=== PATIENT | male | born 1960 | race Caucasian/White ===

== ENCOUNTER 2017-11-25 13:08 | Emergency (ER) | payer MEDICARE ==
--- NOTE | 2017-11-25 13:19 | CT ---
Clinical history: 57-year-old male seizure and comatose. CVA trauma. Scan technique: Volume acquisition of data emergency unenhanced CT scan of the head and brain obtaine d with the patient was lying supine on the Siemens multi slice scanner [place], [place]. All data archived in the PACS system for storage and study (bone brain windows). Interpretation: Uniformly thick bony calvarium without sign of skull fracture or underlying brain contusion or epidur al/subdural hematoma. Symmetric arroyo-white matter pattern and underlying mirror-image normal ventricular system. Physiologi c midline pineal and retrocardiac plexus calcifications. (Suggestion tiny noncalcified meningioma ant eriorly left midline axial slice #16) No sign of acute intracerebral/intraventricular/subarachnoid bleed. No ischemic infarcts or signs of encephalomalacia. Cerebellum and brainstem unremarkable. Symmetric clear pneumatization of the mastoid and paranasal sinuses. CONCLUSION: No sign of acute intracranial bleed
--- NOTE | 2017-11-25 13:24 | EDM.PDOC ---
ED HPI GENERAL MEDICAL PROBLEM - General Stated Complaint: STROKE Time Seen by Provider: 11/25/17 13:12 Source of Information: Reports: EMS History Limitations: Reports: Other - History of Present Illness INITIAL COMMENTS - FREE TEXT/NARRATIVE: This 57 yo male patient was brought to the ED by [facility] due to profound right sided weakness. EMS reports that the patient was at his home lying on the floor with right sided weakness. The last known normal time (reported by his brother) was 2 days ago. The patient reports that he was feeling normal at about 0700 this morning, but fell to the floor by 0800. The patient's brother found him at the time of the call to EMS. The brother reports that he was going to the patient's house to watch a game. EMS was called to the scene at 1242. The patient went directly to CT upon arrival in the ED. Onset: Today Duration: Constant Location: Reports: Other (right sided weakness) Quality: Reports: Other Severity: Severe Improves with: Reports: None Worsens with: Reports: None - Related Data Allergies Allergy/AdvReac Type Severity Reaction Status Date / Time No Known Allergies Allergy Verified 11/25/17 13:45 Home Meds: Home Meds Naproxen Sodium [Aleve] 220 mg PO ASDIRECTED 11/25/17 [History] Past Medical History HEENT History: Reports: None Cardiovascular History: Reports: None Respiratory History: Reports: None Gastrointestinal History: Reports: None Genitourinary History: Reports: None Musculoskeletal History: Reports: None Neurological History: Reports: None Psychiatric History: Reports: None Endocrine/Metabolic History: Reports: None Hematologic History: Reports: None Immunologic History: Reports: None Oncologic (Cancer) History: Reports: None Dermatologic History: Reports: None - Infectious Disease History Infectious Disease History: Reports: None - Past Surgical History Head Surgeries/Procedures: Reports: None Social & Family History - Family History Family Medical History: Noncontributory - Caffeine Use Caffeine Use: Reports: Coffee ED ROS GENERAL - Review of Systems Review Of Systems: ROS reveals no pertinent complaints other than HPI. ED EXAM, NEURO - Physical Exam Exam: Not Obtained Exam Limited By: No Limitations General Appearance: Alert, Severe Distress, Obese Eye Exam: Bilateral Eye: EOMI, PERRL Ears: Normal External Exam, Normal Canal, Hearing Grossly Normal, Normal TMs Nose: Normal Inspection, Normal Mucosa, No Blood Throat/Mouth: Normal Teeth, Normal Gums, Other (right sided facial droop) Head Exam: Atraumatic, Normocephalic Neck: Normal Inspection, Supple Respiratory/Chest: No Respiratory Distress, Lungs Clear, Normal Breath Sounds, No Accessory Muscle Use, Chest Non-Tender Cardiovascular: Normal Peripheral Pulses, Regular Rate, Rhythm, No Edema, No Gallop, No JVD, No Murmur, No Rub GI/Abdominal: Normal Bowel Sounds, Soft, Non-Tender, No Organomegaly, No Distention, No Abnormal Bruit, No Mass (Male) Exam: Deferred Rectal (Males) Exam: Deferred Neurological: Alert, Other (right sided facial droop, right upper and lower extremity weakness) Back Exam: Normal Inspection, Full Range of Motion, NT Extremities: Other (right sided weakness) Skin Exam: Warm, Dry, Intact, Normal Color, No Rash Course - Orders/Labs/Meds Orders: Active Orders 24 hr Category Date Time Status EKG Documentation Completion [RC] URGENT Care 11/25/17 13:09 Ordered Head wo Cont [CT] Urgent Exams 11/25/17 13:09 Ordered CBC WITH AUTO DIFF [HEME] Urgent Lab 11/25/17 13:09 Ordered COMPREHENSIVE METABOLIC PN,CMP [CHEM] Urgent Lab 11/25/17 13:09 Ordered DRUG SCREEN URINE BIORAD [URCHEM] Stat Lab 11/25/17 13:09 Ordered ETHANOL BLOOD MEDICAL [CHEM] Stat Lab 11/25/17 13:09 Ordered INR,PT,PROTHROMBIN TIME [COAG] Stat Lab 11/25/17 13:09 Ordered TROPONIN I [CHEM] Urgent Lab 11/25/17 13:09 Ordered UA W/MICROSCOPIC [URIN] Stat Lab 11/25/17 13:09 Ordered Departure - Departure Time of Disposition: 13:52 Disposition: DC/Tfer to Acute Hospital 02 Condition: Critical Clinical Impression: CVA (cerebral vascular accident) Qualifiers: CVA mechanism: unspecified Qualified Code(s): I63.9 - Cerebral infarction, unspecified - Discharge Information Forms: Interfacility Transfer EMTALA Care Plan Goals: Discussed the examination, history, lab and CT results with Dr. Hall (Neurology with [facility] in [place]). Dr. Hall accepted the patient for continued evaluation and care. The patient was transferred by [facility]. - My Orders Last 24 Hours: My Active Orders 11/25/17 13:09 EKG Documentation Completion [RC] URGENT Head wo Cont [CT] Urgent CBC WITH AUTO DIFF [HEME] Urgent COMPREHENSIVE METABOLIC PN,CMP [CHEM] Urgent DRUG SCREEN URINE BIORAD [URCHEM] Stat ETHANOL BLOOD MEDICAL [CHEM] Stat INR,PT,PROTHROMBIN TIME [COAG] Stat TROPONIN I [CHEM] Urgent UA W/MICROSCOPIC [URIN] Stat - Assessment/Plan Last 24 Hours: My Active Orders 11/25/17 13:09 EKG Documentation Completion [RC] URGENT Head wo Cont [CT] Urgent CBC WITH AUTO DIFF [HEME] Urgent COMPREHENSIVE METABOLIC PN,CMP [CHEM] Urgent DRUG SCREEN URINE BIORAD [URCHEM] Stat ETHANOL BLOOD MEDICAL [CHEM] Stat INR,PT,PROTHROMBIN TIME [COAG] Stat TROPONIN I [CHEM] Urgent UA W/MICROSCOPIC [URIN] Stat
[2017-11-25 13:26] VITALS: BP 179/116
[2017-11-25 13:52] LABS: CHLORIDE,CL 105 mmol/L (101-111)
[2017-11-25 13:53] LABS: SODIUM,NA 140 mmol/L (135-145)
== END 2017-11-25 14:00 ==
LOC: DL.ED 13:08
DX: I63.9 Cerebral infarction, unspecified (principal)
CPT/HCPCS: 36415; 70450; 80053; 80305; 81001; 84484; 85025; 85610; 93005; 93010; 99285; G0480

== ENCOUNTER 2024-01-13 15:01 | Inpatient (IN) | payer MEDICARE, MEDICAID ==
[2024-01-13] MEDS: Lidocaine 5% Oint 35.44 GM Tube TOP ONE (15:50)
[2024-01-13] MEDS: Ketorolac 30 MG/ML SDV IM ONE (16:37)
[2024-01-13] MEDS ORDERED: Ondansetron 4 MG/2 ML SDV IVPUSH PRN ×2 (17:09→20:41)
[2024-01-13] MEDS ORDERED: Acetaminophen 325 MG Tab PO PRN (17:09)
[2024-01-13] MEDS ORDERED: Albuterol/Ipratropium 3.0-0.5 MG/3 ML Neb Soln NEB PRN ×2 (17:14→20:41)
[2024-01-13] MEDS ORDERED: Acetaminophen/HYDROcodone 325-10 MG Tab PO PRN (17:14)
[2024-01-13] MEDS: HYDROmorphone 2 MG/ML Syringe IVPUSH PRN (17:58)
[2024-01-13] MEDS ORDERED: Aluminum Hydroxide/Magnesium Hydroxide/Simethicone Susp 30 ML Cup PO PRN (20:36)
[2024-01-13] MEDS ORDERED: Metoprolol Tartrate 5 MG/5 ML SDV IVPUSH PRN (20:39)
[2024-01-13] MEDS ORDERED: hydrALAZINE 20 MG/ML SDV IVPUSH PRN (20:39)
[2024-01-13] MEDS ORDERED: Promethazine 25 MG/ML SDV IM PRN (20:41)
[2024-01-13] MEDS ORDERED: Polyethylene Glycol 3350 Powder 17 GM Packet PO PRN (20:41)
[2024-01-13] MEDS: Benzocaine/Cetylpyridinium/Menthol Lozenge MUCMEM SCH (21:19)
[2024-01-13] MEDS: Sennosides/Docusate Sodium 50-8.6 MG Tab PO PRN (21:19)
[2024-01-13] MEDS: traMADol 50 MG Tab PO SCH (21:20)
[2024-01-13] MEDS: Tamsulosin 0.4 MG Cap.ER PO SCH (21:20)
[2024-01-13] MEDS: atorvaSTATin 10 MG Tab PO SCH (21:20)
[2024-01-13] MEDS: Calcium Carbonate/Vitamin D3 1250 MG-5 MCG Tab PO SCH (21:20)
[2024-01-13] MEDS: QUEtiapine 25 MG Tab PO SCH (21:21)
[2024-01-13] MEDS: Warfarin 2.5 MG Tab PO ONE (21:21)
[2024-01-13] MEDS: Gabapentin 300 MG Cap PO SCH (21:21)
[2024-01-13] MEDS: Carvedilol 6.25 MG Tab PO SCH (21:22)
[2024-01-13] MEDS ORDERED: Benzocaine/Cetylpyridinium/Menthol Lozenge MUCMEM PRN (21:33)
[2024-01-14 06:45] LABS: BASOPHILS PERCENT AUTO 0.7 % (0.0-1.0); EOSINOPHILS PERCENT AUTO 6.5 % (1.0-3.0); HEMATOCRIT 45.1 % (40.0-54.0); HEMOGLOBIN 13.9 g/dL (14.0-18.0); LYMPHOCYTES PERCENT AUTO 27.5 % (20.5-50.1); MEAN CORPUSCULAR HEMOGLOBIN 30.1 pg (27.0-34.0); MEAN CORPUSCULAR HGB CONC 30.8 g/dL (33.0-35.0); MEAN CORPUSCULAR VOLUME 97.6 fL (80-100); NEUTROPHILS PERCENT AUTO 53.3 % (42.2-75.2); PLATELET COUNT,PLT 221 10^3/uL (150-450); RED BLOOD CELL COUNT 4.62 10^6/uL (4.6-6.2); WHITE BLOOD CELL COUNT,WBC 9.2 10^3/uL (5.0-10.0)
[2024-01-14 07:23] LABS: A/G RATIO 0.9; ALBUMIN 3.4 g/dL (3.4-5.0); ANION GAP 9.5 mEq/L (7-13); BILIRUBIN TOTAL 0.5 mg/dL (0.2-1.0); BUN/CREATININE RATIO 15.8 (No establ ref range); CREATININE 1.14 mg/dL (0.70-1.30); EST CRCL DRUG DOSING (CG) 70.91 mL/min; MAGNESIUM 2.2 mg/dL (1.8-2.4); POTASSIUM,K 4.5 mmol/L (3.5-5.1); PROTEIN TOTAL,TP 7.3 g/dL (6.4-8.2); T4 FREE 0.95 ng/dL (0.76-1.46); TSH ULTRASENSITIVE 2.01 uIU/mL (0.36-3.74)
[2024-01-14] MEDS ORDERED: Warfarin 2.5 MG Tab PO SCH (09:00)
[2024-01-14] MEDS: amLODIPine 5 MG Tab PO SCH (09:18)
[2024-01-14] MEDS: Omeprazole 20 MG Cap.CR PO SCH (09:19)
[2024-01-14 12:25] LABS: INR 1.1 (0.9-1.2)
[2024-01-14] MEDS ORDERED: Warfarin 2.5 MG Tab PO ONE (14:00)
[2024-01-14] MEDS: Warfarin 2.5 MG Tab PO SCH (17:59)
[2024-01-14] MEDS: Warfarin 5 MG Tab PO ONE (18:00)
[2024-01-15 06:37] LABS: INR 1.1 (0.9-1.2); PROTHROMBIN TIME 11.4 SEC (9.0-12.0)
[2024-01-15 06:41] LABS: A/G RATIO 0.9; ALBUMIN 3.5 g/dL (3.4-5.0); ANION GAP 9.3 mEq/L (7-13); BILIRUBIN TOTAL 0.4 mg/dL (0.2-1.0); BUN/CREATININE RATIO 13.8 (No establ ref range); CALCIUM 9.6 mg/dL (8.5-10.1); CREATININE 1.16 mg/dL (0.70-1.30); EST CRCL DRUG DOSING (CG) 69.68 mL/min; MAGNESIUM 1.9 mg/dL (1.8-2.4); POTASSIUM,K 4.3 mmol/L (3.5-5.1); PROTEIN TOTAL,TP 7.6 g/dL (6.4-8.2)
[2024-01-15] MEDS: Warfarin 5 MG Tab PO ONE (17:26)
[2024-01-16 07:09] LABS: INR 1.6 (0.9-1.2); PROTHROMBIN TIME 15.9 SEC (9.0-12.0)
[2024-01-16 07:15] LABS: ALBUMIN 3.3 g/dL (3.4-5.0); ANION GAP 9.3 mEq/L (7-13); BILIRUBIN TOTAL 0.4 mg/dL (0.2-1.0); BUN/CREATININE RATIO 11.3 (No establ ref range); CALCIUM 9.6 mg/dL (8.5-10.1); CREATININE 1.06 mg/dL (0.70-1.30); EST CRCL DRUG DOSING (CG) 76.26 mL/min; MAGNESIUM 1.9 mg/dL (1.8-2.4); POTASSIUM,K 4.3 mmol/L (3.5-5.1); PROTEIN TOTAL,TP 7.1 g/dL (6.4-8.2)
[2024-01-16 07:25] LABS: A/G RATIO 0.87
[2024-01-16] MEDS: Warfarin 5 MG Tab PO ONE (16:47)
[2024-01-16] MEDS: Magnesium Hydroxide 400 MG/5 ML Susp 30 ML Cup PO PRN (20:40)
[2024-01-16] MEDS: Acetaminophen/HYDROcodone 325-5 MG Tab PO PRN (20:42)
[2024-01-17 06:48] LABS: INR 2.7 (0.9-1.2); PROTHROMBIN TIME 25.9 SEC (9.0-12.0)
[2024-01-17 06:51] LABS: ALBUMIN 3.2 g/dL (3.4-5.0); BILIRUBIN TOTAL 0.3 mg/dL (0.2-1.0); BUN/CREATININE RATIO 13.6 (No establ ref range); CALCIUM 9.3 mg/dL (8.5-10.1); CREATININE 1.1 mg/dL (0.70-1.30); EST CRCL DRUG DOSING (CG) 73.48 mL/min; PROTEIN TOTAL,TP 6.8 g/dL (6.4-8.2)
[2024-01-17 06:56] LABS: A/G RATIO 0.89
[2024-01-17] MEDS ORDERED: Warfarin 2.5 MG Tab PO SCH ×2 (08:15→14:00)
[2024-01-17] MEDS: Cyclobenzaprine 10 MG Tab PO PRN (09:06)
[2024-01-18 07:12] LABS: INR 2.7 (0.9-1.2); PROTHROMBIN TIME 26.5 SEC (9.0-12.0)
[2024-01-18 07:13] LABS: A/G RATIO 0.9; ALBUMIN 3.6 g/dL (3.4-5.0); ANION GAP 2.8 mEq/L (7-13); BILIRUBIN TOTAL 0.3 mg/dL (0.2-1.0); BUN/CREATININE RATIO 12.7 (No establ ref range); CALCIUM 9.6 mg/dL (8.5-10.1); CREATININE 1.26 mg/dL (0.70-1.30); EST CRCL DRUG DOSING (CG) 64.15 mL/min; MAGNESIUM 2.3 mg/dL (1.8-2.4); POTASSIUM,K 3.8 mmol/L (3.5-5.1); PROTEIN TOTAL,TP 7.7 g/dL (6.4-8.2)
[2024-01-19 06:45] LABS: INR 2.1 (0.9-1.2); PROTHROMBIN TIME 20.7 SEC (9.0-12.0)
[2024-01-19 10:29] VITALS: BP 115/85; PULSE 90
[2024-01-19] MEDS ORDERED: Warfarin 2.5 MG Tab PO SCH (20:00)
== END 2024-01-19 10:10 | disposition home or self-care (01) | DRG 556 ==
LOC: DL.ED 15:01 → DL.MS 16:29 → UNDOADMOB 16:29 → INTOOBSV 01-15 11:22 → DL.MS 01-15 11:22 → OBSVTOIN 01-15 11:22
PROVIDERS: ADMIT Internal Medicine; ATTEND Internal Medicine
DX: M25.562 Pain in left knee (principal); M17.12 Unilateral primary osteoarthritis, left knee; I10 Essential (primary) hypertension; K21.9 Gastro-esophageal reflux disease without esophagitis; M25.462 Effusion, left knee; W19.XXXA Unspecified fall, initial encounter; K59.00 Constipation, unspecified; Z68.35 Body mass index [BMI] 35.0-35.9, adult; E66.9 Obesity, unspecified; G62.9 Polyneuropathy, unspecified; G89.4 Chronic pain syndrome; I48.91 Unspecified atrial fibrillation; R09.02 Hypoxemia; M51.37 Other intervertebral disc degeneration, lumbosacral region; F32.A Depression, unspecified; E78.00 Pure hypercholesterolemia, unspecified; G47.00 Insomnia, unspecified; R79.1 Abnormal coagulation profile; M48.07 Spinal stenosis, lumbosacral region; Z86.73 Personal history of transient ischemic attack (TIA), and cerebral infarction without residual deficits; Z74.09 Other reduced mobility; Z79.01 Long term (current) use of anticoagulants; Z87.442 Personal history of urinary calculi; Z79.899 Other long term (current) drug therapy
CPT/HCPCS: 36415; 80053; 82306; 83735; 84439; 84443; 85025; 85610; 96372; 96374; 97110-GP; 97165-GO; 97530-GO; 99223; 99232; 99238; 99284; A9270-GY; G0378; J1170; J1885

== ENCOUNTER 2024-06-27 10:34 | Emergency (ER) | payer MEDICARE, MEDICAID ==
[2024-06-27] MEDS: Albuterol/Ipratropium 3.0-0.5 MG/3 ML Neb Soln ONE (10:38)
[2024-06-27] MEDS ORDERED: Iopamidol 755 Mg/ML 100 ML Bottle IVPUSH ONE (10:43)
[2024-06-27 10:51] LABS: BASOPHILS PERCENT AUTO 0.5 % (0.0-1.0); EOSINOPHILS PERCENT AUTO 2.1 % (1.0-3.0); HEMATOCRIT 42.6 % (40.0-54.0); HEMOGLOBIN 12.7 g/dL (14.0-18.0); LYMPHOCYTES PERCENT AUTO 21.6 % (20.5-50.1); MEAN CORPUSCULAR HEMOGLOBIN 30.2 pg (27.0-34.0); MEAN CORPUSCULAR HGB CONC 29.8 g/dL (33.0-35.0); MEAN CORPUSCULAR VOLUME 101.2 fL (80-100); MONOCYTES PERCENT AUTO 13.3 % (2-8); NEUTROPHILS PERCENT AUTO 62.5 % (42.2-75.2); PLATELET COUNT,PLT 228 10^3/uL (150-450); RED BLOOD CELL COUNT 4.21 10^6/uL (4.6-6.2); WHITE BLOOD CELL COUNT,WBC 11.1 10^3/uL (5.0-10.0)
[2024-06-27 10:56] LABS: O2 DELIVERY DEVICE NON REBR MASK
[2024-06-27 10:59] LABS: PH,VENOUS 7.27 (7.31-7.41)
[2024-06-27 11:02] LABS: PCO2 VENOUS 82 mmHg (41-51); PO2 VENOUS 66 mmHg (35-42)
[2024-06-27 11:03] LABS: BASE EXCESS VENOUS 6.6 mmol/l ((-2)-(+3)); BICARBONATE,VENOUS 36 mmol/l (19-25); O2 SATURATION VENOUS 86.3 % (60-80)
[2024-06-27 11:11] LABS: INR 2.6 (0.9-1.2); PROTHROMBIN TIME 25.5 SEC (9.0-12.0)
[2024-06-27 11:14] LABS: A/G RATIO 0.9; ALANINE AMINOTRANSFERASE,ALT 25 U/L (16-63); ALBUMIN 3.6 g/dL (3.4-5.0); ALKALINE PHOSPHATASE 96 U/L (46-116); ANION GAP 10.7 mEq/L (7-13); ASPARTATE AMNIOTRANSFERASE,AST 14 U/L (15-37); BILIRUBIN TOTAL 0.4 mg/dL (0.2-1.0); BLOOD UREA NITROGEN,BUN 23 mg/dL (7-18); CALCIUM 9.1 mg/dL (8.5-10.1); CARBON DIOXIDE,CO2 36 mmol/L (21-32); CHLORIDE,CL 105 mmol/L (98-107); CREATININE 1.15 mg/dL (0.70-1.30); EST CRCL DRUG DOSING (CG) 70.29 mL/min; ESTIMATED GFR 71 mL/min (>=60); ETHANOL BLOOD MEDICAL < 3 mg/dL (0); GLUCOSE RANDOM 97 mg/dL (70-99); POTASSIUM,K 4.7 mmol/L (3.5-5.1); PROTEIN TOTAL,TP 7.4 g/dL (6.4-8.2); SODIUM,NA 147 mmol/L (136-145)
[2024-06-27 11:17] LABS: LACTIC ACID 0.7 mmol/L (0.4-2.0)
[2024-06-27] MEDS: methylPREDNISolone Sodium Succinate 125 MG/2 ML SDV IVPUSH ONE (11:40)
[2024-06-27 11:54] LABS: APPEARANCE,URINE SLIGHTLY CLOUDY (CLEAR); BILIRUBIN,URINE NEGATIVE (NEGATIVE); COLOR,URINE YELLOW (YELLOW); GLUCOSE,URINE NEGATIVE (NEGATIVE); KETONES,URINE NEGATIVE (NEGATIVE); LEUKOCYTE ESTERASE,URINE NEGATIVE (NEGATIVE); NITRITE,URINE NEGATIVE (NEGATIVE); OCCULT BLOOD,URINE LARGE (NEGATIVE); PH,URINE 5.5 (5.0-9.0); PROTEIN,URINE 100 (NEGATIVE); UROBILINOGEN,URINE 0.2 mg/dL (0.2-1.0)
[2024-06-27 12:03] LABS: EPITHELIAL CELLS,URINE FEW /HPF (NOT SEEN); RBC,URINE SEMI-PACKED /HPF (0-5)
[2024-06-27 12:04] LABS: AMORPHOUS SEDIMENT,URINE FEW /HPF (NOT SEEN); BACTERIA,URINE FEW /HPF (0-FEW/HPF); MUCUS,URINE FEW /LPF (NOT SEEN)
[2024-06-27] MEDS: Oseltamivir 75 MG Cap PO ONE (12:44)
[2024-06-27 13:08] VITALS: BP 94/71; PULSE 113
[2024-06-27] MEDS: Azithromycin 500 MG in Sodium Chloride 0.9% 250 ML IV ONE (13:19)
[2024-06-27] MEDS: cefTRIAXone 1 GM Vial IVPUSH ONE (13:19)
== END 2024-06-27 14:21 ==
LOC: DL.ED 10:34
DX: I63.9 Cerebral infarction, unspecified (principal); J10.00 Influenza due to other identified influenza virus with unspecified type of pneumonia; E87.0 Hyperosmolality and hypernatremia; I48.91 Unspecified atrial fibrillation; E78.00 Pure hypercholesterolemia, unspecified; I11.0 Hypertensive heart disease with heart failure; I50.9 Heart failure, unspecified; Z79.01 Long term (current) use of anticoagulants; Z79.899 Other long term (current) drug therapy; Z86.73 Personal history of transient ischemic attack (TIA), and cerebral infarction without residual deficits
CPT/HCPCS: 36415; 70450; 70496; 70498; 71045; 71275; 80053; 80307; 81001; 82803; 82947; 83605; 83735; 83880; 84484; 85025; 85379; 85610; 87040; 87428; 93005; 94660; 96365; 96375; 99285; A9270; J0456; J0696; J2919; J7050; 93010; J7620-GY

== ENCOUNTER 2024-08-24 14:43 | Inpatient (IN) | payer MEDICARE, MEDICAID ==
[2024-08-24] MEDS ORDERED: Sodium Chloride 0.9% 10 ML Syringe FLUSH PRN (15:06)
[2024-08-24 15:17] LABS: O2 DELIVERY DEVICE SIMPLE MASK
[2024-08-24 15:18] LABS: BASOPHILS PERCENT AUTO 0.5 % (0.0-1.0); EOSINOPHILS PERCENT AUTO 3.2 % (1.0-3.0); HEMATOCRIT 38.4 % (40.0-54.0); HEMOGLOBIN 11.4 g/dL (14.0-18.0); LYMPHOCYTES PERCENT AUTO 20.8 % (20.5-50.1); MEAN CORPUSCULAR HEMOGLOBIN 30.2 pg (27.0-34.0); MEAN CORPUSCULAR HGB CONC 29.7 g/dL (33.0-35.0); MEAN CORPUSCULAR VOLUME 101.6 fL (80-100); MONOCYTES PERCENT AUTO 9.7 % (2-8); NEUTROPHILS PERCENT AUTO 65.8 % (42.2-75.2); PLATELET COUNT,PLT 262 10^3/uL (150-450); RED BLOOD CELL COUNT 3.78 10^6/uL (4.6-6.2); WHITE BLOOD CELL COUNT,WBC 11.2 10^3/uL (5.0-10.0)
[2024-08-24 15:39] LABS: PROTHROMBIN TIME 19.8 SEC (9.0-12.0)
[2024-08-24 15:51] LABS: BICARBONATE,VENOUS 36 mmol/l (19-25); O2 SATURATION VENOUS 98.5 % (60-80); PCO2 VENOUS 87 mmHg (41-51); PH,VENOUS 7.24 (7.31-7.41); PO2 VENOUS 126 mmHg (35-42)
[2024-08-24 15:52] LABS: BASE EXCESS VENOUS 6.1 mmol/l ((-2)-(+3))
[2024-08-24 16:16] LABS: BILIRUBIN TOTAL 0.3 mg/dL (0.2-1.0); BUN/CREATININE RATIO 10.2 (No establ ref range); CALCIUM 8.5 mg/dL (8.5-10.1); CREATININE 1.47 mg/dL (0.70-1.30); EST CRCL DRUG DOSING (CG) 54.26 mL/min; MAGNESIUM 2.1 mg/dL (1.8-2.4); POTASSIUM,K 4.1 mmol/L (3.5-5.1); PROTEIN TOTAL,TP 6.8 g/dL (6.4-8.2)
[2024-08-24 16:27] LABS: A/G RATIO 0.79; ANION GAP 8.1 mEq/L (7-13)
[2024-08-24 17:05] LABS: O2 DELIVERY DEVICE BIPAP; PH,VENOUS 7.25 (7.31-7.41)
[2024-08-24 17:06] LABS: BASE EXCESS VENOUS 6.1 mmol/l ((-2)-(+3)); BICARBONATE,VENOUS 36 mmol/l (19-25); O2 SATURATION VENOUS 84.6 % (60-80); PO2 VENOUS 62 mmHg (35-42)
[2024-08-24 17:07] LABS: PCO2 VENOUS 85 mmHg (41-51)
[2024-08-24 20:17] LABS: O2 DELIVERY DEVICE BIPAP
[2024-08-24 20:18] LABS: ALLEN TEST PERFORMED; BASE EXCESS ARTERIAL 9 mmol/L ((-2)-(+3)); BICARBONATE,ARTERIAL 35.2 mmol/L (22-26); O2 SATURATION ARTERIAL 94 % (95-100); PCO2 ARTERIAL 63 mmHg (35-45); PH,ARTERIAL 7.37 (7.35-7.45); PO2 ARTERIAL 72 mmHg (70-100)
[2024-08-24] MEDS ORDERED: hydrALAZINE 20 MG/ML SDV IVPUSH PRN (22:07)
[2024-08-24] MEDS ORDERED: guaiFENesin/Dextromethorphan 100-10 MG/5 ML Soln 5 ML Cup PO PRN (22:11)
[2024-08-24 22:36] LABS: HEMOGLOBIN A1C 6.1 % (<5.7)
[2024-08-24] MEDS ORDERED: Ondansetron 4 MG/2 ML SDV IVPUSH PRN (22:53)
[2024-08-24] MEDS ORDERED: Naloxone 2 MG/2 ML Syringe IVPUSH PRN (22:53)
[2024-08-24] MEDS ORDERED: Polyethylene Glycol 3350 Powder 17 GM Packet PO PRN (22:53)
[2024-08-24] MEDS ORDERED: Albuterol/Ipratropium 3.0-0.5 MG/3 ML Neb Soln NEB PRN (22:53)
[2024-08-24] MEDS ORDERED: Magnesium Hydroxide 400 MG/5 ML Susp 30 ML Cup PO PRN (22:53)
[2024-08-24] MEDS ORDERED: Acetaminophen 325 MG Tab PO PRN (22:53)
[2024-08-24] MEDS ORDERED: Sennosides/Docusate Sodium 50-8.6 MG Tab PO PRN (22:53)
[2024-08-24] MEDS: Azithromycin 500 MG in Sodium Chloride 0.9% 250 ML IV ONE (23:06)
[2024-08-24] MEDS: Magnesium Sulf/Wat 2 GM/50 mL 2 GM in Premix Bag 1 BAG IV ONE (23:07)
[2024-08-24] MEDS: methylPREDNISolone Sodium Succinate 125 MG/2 ML SDV IVPUSH SCH (23:08)
[2024-08-24] MEDS ORDERED: traMADol 50 MG Tab PO PRN (23:10)
[2024-08-24] MEDS: Aminophylline 500 MG in Sodium Chloride 0.9% 500 ML IV SCH (23:43)
[2024-08-25] MEDS: Dexamethasone 4 MG/ML SDV IVPUSH ONE (00:48)
[2024-08-25] MEDS ORDERED: traMADol 50 MG Tab PO PRN (06:27)
[2024-08-25 06:33] LABS: BASOPHILS PERCENT AUTO 0.1 % (0.0-1.0); HEMATOCRIT 40.2 % (40.0-54.0); HEMOGLOBIN 11.7 g/dL (14.0-18.0); LYMPHOCYTES PERCENT AUTO 8.9 % (20.5-50.1); MEAN CORPUSCULAR HEMOGLOBIN 29.4 pg (27.0-34.0); MEAN CORPUSCULAR HGB CONC 29.1 g/dL (33.0-35.0); MONOCYTES PERCENT AUTO 0.8 % (2-8); NEUTROPHILS PERCENT AUTO 90.2 % (42.2-75.2); PLATELET COUNT,PLT 262 10^3/uL (150-450); RED BLOOD CELL COUNT 3.98 10^6/uL (4.6-6.2)
[2024-08-25 07:01] LABS: ALBUMIN 2.9 g/dL (3.4-5.0); ANION GAP 8.9 mEq/L (7-13); BILIRUBIN TOTAL 0.4 mg/dL (0.2-1.0); BUN/CREATININE RATIO 10.9 (No establ ref range); C-REACTIVE PROTEIN 1.15 ng/dL (<=0.50); CALCIUM 8.5 mg/dL (8.5-10.1); CREATININE 1.19 mg/dL (0.70-1.30); EST CRCL DRUG DOSING (CG) 67.02 mL/min; MAGNESIUM 2.3 mg/dL (1.8-2.4); POTASSIUM,K 3.9 mmol/L (3.5-5.1); PROTEIN TOTAL,TP 6.8 g/dL (6.4-8.2)
[2024-08-25 07:03] LABS: INR 1.8 (0.9-1.2); PROTHROMBIN TIME 18.2 SEC (9.0-12.0)
[2024-08-25 07:08] LABS: A/G RATIO 0.74
[2024-08-25] MEDS: Formoterol/Mometasone 200-5 MCG 8.8 GM Inhaler INH SCH (07:12)
[2024-08-25] MEDS: Tiotropium Bromide 4 GM Inhalation Spray (2.5mcg/1 dose; 10 doses) INH SCH (07:13)
[2024-08-25] MEDS: Potassium Chloride 10 MEQ Tab.ER PO SCH (08:05)
[2024-08-25] MEDS: guaiFENesin 600 MG Tab.ER PO SCH (08:05)
[2024-08-25] MEDS: Tolterodine 2 MG Cap.ER PO SCH (08:05)
[2024-08-25] MEDS: Gabapentin 300 MG Cap PO SCH (08:05)
[2024-08-25] MEDS: Modafinil 100 MG Tab PO SCH (08:05)
[2024-08-25] MEDS: Omeprazole 20 MG Cap.CR PO SCH (08:05)
[2024-08-25] MEDS: Azithromycin 500 MG in Sodium Chloride 0.9% 250 ML IV SCH (08:06)
[2024-08-25] MEDS: Metoprolol Succinate 25 MG Tab.ER PO SCH (08:06)
[2024-08-25] MEDS: Midodrine 5 MG Tab PO SCH (15:42)
[2024-08-25] MEDS: QUEtiapine 25 MG Tab PO SCH (21:22)
[2024-08-25] MEDS: Warfarin** 1 MG TABLET PO ONE (21:24)
[2024-08-25] MEDS: atorvaSTATin 10 MG Tab PO SCH (21:25)
[2024-08-25] MEDS: Tamsulosin 0.4 MG Cap.ER PO SCH (21:25)
[2024-08-26] MEDS: Metoprolol Tartrate 5 MG/5 ML SDV IVPUSH PRN (05:49)
[2024-08-26 06:34] LABS: BASOPHILS PERCENT AUTO 0.1 % (0.0-1.0); EOSINOPHILS PERCENT AUTO 0.1 % (1.0-3.0); HEMATOCRIT 39.2 % (40.0-54.0); HEMOGLOBIN 11.5 g/dL (14.0-18.0); LYMPHOCYTES PERCENT AUTO 3.6 % (20.5-50.1); MEAN CORPUSCULAR HEMOGLOBIN 29.6 pg (27.0-34.0); MEAN CORPUSCULAR HGB CONC 29.3 g/dL (33.0-35.0); MONOCYTES PERCENT AUTO 3.3 % (2-8); NEUTROPHILS PERCENT AUTO 92.9 % (42.2-75.2); PLATELET COUNT,PLT 289 10^3/uL (150-450); RED BLOOD CELL COUNT 3.88 10^6/uL (4.6-6.2); WHITE BLOOD CELL COUNT,WBC 18.6 10^3/uL (5.0-10.0)
[2024-08-26 06:56] LABS: INR 1.7 (0.9-1.2); PROTHROMBIN TIME 17.2 SEC (9.0-12.0)
[2024-08-26 07:01] LABS: ALBUMIN 2.8 g/dL (3.4-5.0); ANION GAP 4.1 mEq/L (7-13); BILIRUBIN TOTAL 0.3 mg/dL (0.2-1.0); BUN/CREATININE RATIO 12.6 (No establ ref range); C-REACTIVE PROTEIN 0.71 ng/dL (<=0.50); CALCIUM 8.2 mg/dL (8.5-10.1); CREATININE 1.35 mg/dL (0.70-1.30); EST CRCL DRUG DOSING (CG) 59.08 mL/min; MAGNESIUM 2.3 mg/dL (1.8-2.4); POTASSIUM,K 4.1 mmol/L (3.5-5.1); PROTEIN TOTAL,TP 6.7 g/dL (6.4-8.2)
[2024-08-26 07:09] LABS: A/G RATIO 0.72
[2024-08-26] MEDS: Sodium Chloride 0.9% 1,000 ML IV SCH (10:02)
[2024-08-26] MEDS: ETHACRYNIC ACID 25 MG PO SCH (10:16)
[2024-08-26] MEDS: Warfarin** 1 MG TABLET PO ONE (15:37)
[2024-08-26] MEDS: methylPREDNISolone Sodium Succinate 125 MG/2 ML SDV IVPUSH SCH (15:38)
[2024-08-27 06:41] LABS: HEMATOCRIT 45.1 % (40.0-54.0); HEMOGLOBIN 12.3 g/dL (14.0-18.0); MEAN CORPUSCULAR HEMOGLOBIN 28.8 pg (27.0-34.0); MEAN CORPUSCULAR HGB CONC 27.3 g/dL (33.0-35.0); MEAN CORPUSCULAR VOLUME 105.6 fL (80-100); PLATELET COUNT,PLT 336 10^3/uL (150-450); RED BLOOD CELL COUNT 4.27 10^6/uL (4.6-6.2); WHITE BLOOD CELL COUNT,WBC 26.8 10^3/uL (5.0-10.0)
[2024-08-27 06:43] LABS: LYMPHOCYTES PERCENT AUTO 3.3 % (20.5-50.1); MONOCYTES PERCENT AUTO 5.5 % (2-8); NEUTROPHILS PERCENT AUTO 91.2 % (42.2-75.2)
[2024-08-27 07:03] LABS: INR 1.5 (0.9-1.2); PROTHROMBIN TIME 15.5 SEC (9.0-12.0)
[2024-08-27 07:04] LABS: ALANINE AMINOTRANSFERASE,ALT 62 U/L (16-63); ALBUMIN 3.2 g/dL (3.4-5.0); ALKALINE PHOSPHATASE 100 U/L (46-116); ASPARTATE AMNIOTRANSFERASE,AST 55 U/L (15-37); BILIRUBIN TOTAL 0.3 mg/dL (0.2-1.0); BLOOD UREA NITROGEN,BUN 24 mg/dL (7-18); BUN/CREATININE RATIO 12.5 (No establ ref range); CARBON DIOXIDE,CO2 36 mmol/L (21-32); CHLORIDE,CL 109 mmol/L (98-107); CREATININE 1.92 mg/dL (0.70-1.30); EST CRCL DRUG DOSING (CG) 41.54 mL/min; GLUCOSE RANDOM 185 mg/dL (70-99); MAGNESIUM 2.5 mg/dL (1.8-2.4); PROTEIN TOTAL,TP 7.2 g/dL (6.4-8.2); SODIUM,NA 146 mmol/L (136-145)
[2024-08-27 07:08] LABS: ANION GAP 6.9 mEq/L (7-13); POTASSIUM,K 5.9 mmol/L (3.5-5.1)
[2024-08-27 07:23] LABS: C-REACTIVE PROTEIN < 0.50 ng/dL (<=0.50); ESTIMATED GFR 38 mL/min (>=60)
[2024-08-27 08:05] LABS: BAND PERCENT MAN 3 %; SEG NEUTROPHILS PERCENT MAN 92 % (42-75)
[2024-08-27 08:06] LABS: LYMPHOCYTES PERCENT MAN 2 % (20-50); MONOCYTES PERCENT MAN 3 % (2-8)
[2024-08-27] MEDS ORDERED: Dextrose 5% in Water 1,000 ML IV SCH (09:15)
[2024-08-27 09:53] LABS: O2 DELIVERY DEVICE OM
[2024-08-27 09:56] LABS: O2 SATURATION ARTERIAL 95 % (95-100); PO2 ARTERIAL 95 mmHg (70-100)
[2024-08-27 09:57] LABS: ALLEN TEST PERFORMED; BASE EXCESS ARTERIAL -1 mmol/L ((-2)-(+3)); BICARBONATE,ARTERIAL 32.8 mmol/L (22-26)
[2024-08-27 10:01] LABS: PCO2 ARTERIAL 120 mmHg (35-45); PH,ARTERIAL 7.07 (7.35-7.45)
[2024-08-27] MEDS: Metoprolol Succinate 25 MG Tab.ER PO SCH (10:55)
[2024-08-27] MEDS: Sodium Polystyrene Sulfonate 15 GM/60 ML Susp 60 ML Bot PO ONE (10:57)
[2024-08-27] MEDS: methylPREDNISolone Sodium Succinate 125 MG/2 ML SDV IVPUSH SCH (14:05)
[2024-08-27] MEDS: Warfarin 5 MG Tab PO ONE (14:48)
[2024-08-28] MEDS: Dextrose 5%-0.9% NaCl 1,000 ML IV SCH (02:49)
[2024-08-28 06:42] LABS: HEMATOCRIT 39.8 % (40.0-54.0); HEMOGLOBIN 11.1 g/dL (14.0-18.0); LYMPHOCYTES PERCENT AUTO 3.8 % (20.5-50.1); MEAN CORPUSCULAR HGB CONC 27.9 g/dL (33.0-35.0); MEAN CORPUSCULAR VOLUME 103.9 fL (80-100); MONOCYTES PERCENT AUTO 5.3 % (2-8); NEUTROPHILS PERCENT AUTO 90.8 % (42.2-75.2); PLATELET COUNT,PLT 210 10^3/uL (150-450); RED BLOOD CELL COUNT 3.83 10^6/uL (4.6-6.2); WHITE BLOOD CELL COUNT,WBC 17.3 10^3/uL (5.0-10.0)
[2024-08-28 06:57] LABS: INR 1.7 (0.9-1.2)
[2024-08-28 06:59] LABS: BASOPHILS PERCENT AUTO 0.1 % (0.0-1.0)
[2024-08-28 07:05] LABS: ALBUMIN 2.9 g/dL (3.4-5.0); ANION GAP 7.4 mEq/L (7-13); BILIRUBIN TOTAL 0.3 mg/dL (0.2-1.0); CALCIUM 7.9 mg/dL (8.5-10.1); CREATININE 1.5 mg/dL (0.70-1.30); EST CRCL DRUG DOSING (CG) 53.17 mL/min; MAGNESIUM 2.3 mg/dL (1.8-2.4); POTASSIUM,K 4.4 mmol/L (3.5-5.1); PROTEIN TOTAL,TP 6.4 g/dL (6.4-8.2)
[2024-08-28 07:08] LABS: A/G RATIO 0.83
[2024-08-28] MEDS: Metoprolol Tartrate 5 MG/5 ML SDV IVPUSH PRN (21:22)
[2024-08-28] MEDS: hydrALAZINE 20 MG/ML SDV IVPUSH PRN (21:22)
[2024-08-28] MEDS: Warfarin 5 MG Tab PO ONE (21:22)
[2024-08-29] MEDS: cloNIDine 0.1 MG Tab PO STA (00:45)
[2024-08-29] MEDS: HYDROmorphone 0.5 MG/0.5 ML Syringe IVPUSH PRN (05:10)
[2024-08-29 09:04] LABS: INR 1.6 (0.9-1.2)
[2024-08-29] MEDS: Metoprolol Succinate 25 MG Tab.ER PO SCH (09:16)
[2024-08-29] MEDS: LORazepam 2 MG/ML SDV IVPUSH ONE (10:39)
[2024-08-29 13:17] VITALS: BP 123/92; PULSE 129
[2024-08-29] MEDS ORDERED: Atropine 1% Ophth Soln 5 ML Bottle SL PRN (14:45)
[2024-08-29] MEDS ORDERED: Morphine 2 MG/ML SYRINGE IVPUSH PRN (14:46)
[2024-08-29] MEDS: Scopalamine 1mg/3day Transdermal Patch TOP ONE (15:27)
[2024-08-29] MEDS: fentaNYL 25 MCG/HR Transdermal Patch TRDERM ONE (15:27)
[2024-08-29] MEDS: Morphine 2 MG/ML SYRINGE IVPUSH PRN (16:25)
[2024-08-29] MEDS: LORazepam 2 MG/ML SDV IVPUSH PRN (17:41)
[2024-08-29] MEDS: Check FENTANYL Patch TRDERM SCH (20:57)
[2024-08-29] MEDS: Check SCOPOLAMINE Patch TRDERM SCH (20:58)
[2024-08-29] MEDS ORDERED: Warfarin 5 MG Tab PO ONE (21:00)
[2024-08-30] MEDS: Morphine 4 MG/ML Syringe IVPUSH PRN ×2 (09:51→19:34)
[2024-08-30] MEDS ORDERED: LORazepam 2 MG/ML SDV IVPUSH PRN (19:21)
== END 2024-08-30 21:35 | disposition expired | DRG 189 ==
LOC: DL.ED 14:43 → DL.MS 20:56
PROVIDERS: ADMIT Internal Medicine; ATTEND Internal Medicine
PROC: 3E03329 Introduction of Other Anti-infective into Peripheral Vein, Percutaneous Approach (ICD-10-PCS; principal; 2024-08-24)
PROC: 4A133R1 Monitoring of Arterial Saturation, Peripheral, Percutaneous Approach (ICD-10-PCS; 2024-08-24)
PROC: 5A09457 Assistance with Respiratory Ventilation, 24-96 Consecutive Hours, Continuous Positive Airway Pressure (ICD-10-PCS; 2024-08-24)
PROC: 5A0945A Assistance with Respiratory Ventilation, 24-96 Consecutive Hours, High Flow/Velocity Cannula (ICD-10-PCS; 2024-08-27)
PROC: 0T9B70Z Drainage of Bladder with Drainage Device, Via Natural or Artificial Opening (ICD-10-PCS; 2024-08-28)
DX: J96.01 Acute respiratory failure with hypoxia (principal); G93.41 Metabolic encephalopathy; G92.8 Other toxic encephalopathy; J44.1 Chronic obstructive pulmonary disease with (acute) exacerbation; E87.0 Hyperosmolality and hypernatremia; N17.9 Acute kidney failure, unspecified; I10 Essential (primary) hypertension; E87.29 Other acidosis; I69.351 Hemiplegia and hemiparesis following cerebral infarction affecting right dominant side; E66.2 Morbid (severe) obesity with alveolar hypoventilation; Z66 Do not resuscitate; M48.061 Spinal stenosis, lumbar region without neurogenic claudication; E66.9 Obesity, unspecified; Z51.5 Encounter for palliative care; J96.02 Acute respiratory failure with hypercapnia; I48.91 Unspecified atrial fibrillation; K59.09 Other constipation; E78.00 Pure hypercholesterolemia, unspecified; M19.90 Unspecified osteoarthritis, unspecified site; F32.A Depression, unspecified; K21.9 Gastro-esophageal reflux disease without esophagitis; G62.9 Polyneuropathy, unspecified; G47.00 Insomnia, unspecified; R73.03 Prediabetes; M48.07 Spinal stenosis, lumbosacral region; G89.4 Chronic pain syndrome; E87.5 Hyperkalemia; R33.9 Retention of urine, unspecified; I50.9 Heart failure, unspecified; I11.0 Hypertensive heart disease with heart failure; R26.9 Unspecified abnormalities of gait and mobility; Z79.899 Other long term (current) drug therapy; Z79.01 Long term (current) use of anticoagulants; Z68.38 Body mass index [BMI] 38.0-38.9, adult; Z87.891 Personal history of nicotine dependence; Z53.20 Procedure and treatment not carried out because of patient's decision for unspecified reasons; Z91.199 Patient's noncompliance with other medical treatment and regimen due to unspecified reason
CPT/HCPCS: 36415; 36600; 51701; 51702; 51798; 70450; 71045; 71250; 72131; 80053; 80198; 82803; 83036; 83735; 83880; 84484; 85025; 85610; 86140; 87428-QW; 93005; 93010; 94660; 94664; 99284; 99285; A9270-GY; J0280; J0360; J0456; J2060; J2270; J2919; J3475; J3490; J7030; J7040; J7042; J7050